=== PATIENT | female | born 1980 | race Caucasian/White ===

== ENCOUNTER 2019-02-11 01:27 | Emergency (ER) | payer OTHER ==
[2019-02-11] MEDS ORDERED: Sodium Chloride 0.9% 1,000 ML IV STA (01:47)
--- NOTE | 2019-02-11 02:56 | ED PDOC ---
HPI: Abdomen Time Seen by Provider: 02/11/19 01:46 Chief Complaint (Nursing): Abdominal Pain Chief Complaint (Provider): Abdominal Pain History Per: Patient History/Exam Limitations: no limitations Onset/Duration Of Symptoms: Hrs (x 8) Current Symptoms Are (Timing): Still Present Location Of Pain/Discomfort: Diffuse Quality Of Discomfort: "Pain" Associated Symptoms: Nausea, Diarrhea Exacerbating Factors: Food Additional Complaint(s): 38 year old female with no significant medical history presents to the ED with abdominal pain and diarrhea since 6 pm yesterday. Patient reports she ate fried plantains and subsequently became nauseous and experienced 6 episodes of non- bloody diarrhea. She describes pain as 8/10. Patient took Pepto Bismol with no relief of symptoms. Denies vomiting and fever. PMD: none provided Past Medical History Reviewed: Historical Data, Nursing Documentation, Vital Signs Vital Signs: Last Vital Signs Temp 99.6 F 02/11/19 01:41 Pulse 115 H 02/11/19 01:41 Resp 18 02/11/19 01:41 BP 109/61 02/11/19 01:41 Pulse Ox 98 02/11/19 01:41 - Medical History PMH: No Chronic Diseases - Surgical History Surgical History: No Surg Hx - Family History Family History: States: No Known Family Hx - Social History Current smoker - smoking cessation education provided: No Alcohol: None Drugs: Denies - Home Medications Home Medications: Ambulatory Orders Medication Instructions Recorded Famotidine [Pepcid] 20 mg PO Q12 #14 tab 02/11/19 Ondansetron ODT [Zofran ODT] 4 mg PO Q6 PRN #8 odt 02/11/19 - Allergies Allergies/Adverse Reactions: Allergies Allergy/AdvReac Type Severity Reaction Status Date / Time No Known Allergies Allergy Verified 02/11/19 01:41 Review of Systems ROS Statement: Except As Marked, All Systems Reviewed And Found Negative Constitutional: Negative for: Fever, Chills Gastrointestinal: Positive for: Nausea, Abdominal Pain, Diarrhea. Negative for: Vomiting Physical Exam - Reviewed Nursing Documentation Reviewed: Yes Vital Signs Reviewed: Yes - Physical Exam Appears: Positive for: Uncomfortable Head Exam: Positive for: ATRAUMATIC, NORMAL INSPECTION, NORMOCEPHALIC Skin: Positive for: Normal Color, Warm, Dry Eye Exam: Positive for: EOMI, Normal appearance, PERRL Neck: Positive for: Normal, Painless ROM, Supple Cardiovascular/Chest: Positive for: Tachycardia (with regular rhythm) Respiratory: Positive for: Normal Breath Sounds. Negative for: Respiratory Distress Gastrointestinal/Abdominal: Positive for: Tenderness (diffuse tenderness). Negative for: Mass, Guarding, Rebound Back: Positive for: Normal Inspection. Negative for: L CVA Tenderness, R CVA Tenderness Extremity: Positive for: Normal ROM (x 4). Negative for: Deformity Neurological/Psych: Positive for: Awake, Alert, Normal Tone, Oriented (x 3), Motor/Sensory Deficits - Laboratory Results Result Diagrams: 02/11/19 02:50 02/11/19 02:50 - ECG O2 Sat by Pulse Oximetry: 98 (RA) Pulse Ox Interpretation: Normal Medical Decision Making Medical Decision Makin:46 Impression: abdominal pain and diarrhea Initial Plan: --CMP --CBC --Lipase --Urine preg --Urine dip --Bentyl 20 mg PO --NS IV 1,000 mls --Toradol 30 mg IV --Zofran ODT 4 mg PO --UA --Gallbladder US 03:42 Gallbladder US Findings: A stone is noted at the neck of the gallbladder measuring 1.3 cm. Normal gallbladder wall thickness measuring 2.9 mm. Normal liver measuring 14.4 cm. Nondilated common bile duct measuring 5.1 mm. Unremarkable visualized pancreas. Unremarkable IVC. Unremarkable right kidney. Impression: Cholelithiasis without acute cholecystitis. 04:18 Patient reports improvement of symptoms and is stable for discharge. Diagnosis is cholelithiasis. Scribe Attestation: Documented by Dot Alexis, acting as a scribe Mike Ledbetter MD Provider Scribe Attestation: All medical record entries made by the Scribe were at my direction and personally dictated by me. I have reviewed the chart and agree that the record accurately reflects my personal performance of the history, physical exam, medical decision making, and the department course for this patient. I have also personally directed, reviewed, and agree with the discharge instructions and disposition Disposition - Clinical Impression Clinical Impression: Cholelithiasis - Patient ED Disposition Is Patient to be Admitted: No - Disposition Referrals: [facility] [place] [Outside] Disposition: Routine/Home Disposition Time: 04:20 Condition: STABLE Prescriptions: Famotidine [Pepcid] 20 mg PO Q12 #14 tab Ondansetron ODT [Zofran ODT] 4 mg PO Q6 PRN #8 odt PRN Reason: Nausea/Vomiting Instructions: Gallstones Forms: [facility] (Spanish) Print Language: BURMESE
[2019-02-11 03:08] LABS: LYMPH # 0.4 K/uL (1.0-4.3); MEAN PLATELET VOLUME 8.6 fl (7.2-11.7); SQUAMOUS EPITHIAL 1 /hpf (0-5); URINE BILIRUBIN NEGATIVE (NEGATIVE); URINE BLOOD NEGATIVE (NEGATIVE); URINE CLARITY SLIGHTY-CLOUDY (Clear); URINE COLOR YELLOW (YELLOW); URINE GLUCOSE (UA) NEG (NEGATIVE); URINE LEUKOCYTE ESTERASE SMALL Leu/uL (Negative); URINE PROTEIN NEGATIVE (NEGATIVE); URINE UROBILINOGEN 0.2-1.0 mg/dL (0.2-1.0); WHITE BLOOD COUNT 10.3 K/uL (4.8-10.8)
[2019-02-11 03:15] LABS: ALB/GLOB RATIO 1.3 (1.0-2.1); ALBUMIN 4.4 g/dL (3.5-5.0); ALT/SGPT 28 U/L (9-52); AST/SGOT 26 U/L (14-36); BLOOD UREA NITROGEN 11 mg/dl (7-17); CALCIUM 9.1 mg/dL (8.4-10.2); GFR NON-AFRICAN AMERICAN > 60; LIPASE 60 U/L (23-300)
[2019-02-11 03:25] LABS: BASO % 0.1 % (0.0-2.0); MEAN CORPUSCULAR HGB CONC 29.5 g/dL (33.0-37.0); MONO # 0.6 K/uL (0.0-0.8); MONO % 5.4 % (0.0-10.0); NEUT # 9.3 K/uL (1.8-7.0); NEUT % 90.5 % (50.0-75.0); PLATELET COUNT 270 K/uL (130-400); RBC 4.73 Mil/uL (3.80-5.20)
[2019-02-11 03:26] LABS: HEMOGLOBIN 8.3 g/dL (12.0-16.0)
[2019-02-11 03:27] LABS: MEAN CORPUSCULAR HEMOGLOBIN 17.5 pg (27.0-31.0); RED CELL DISTRIBUTION WIDTH 18.4 % (11.5-14.5)
[2019-02-11 03:28] LABS: MEAN CELL VOLUME 59.3 fl (81.0-99.0)
[2019-02-11 03:58] LABS: ANISOCYTOSIS MARKED; BANDS 4 % (0-2); HYPOCHROMIC MARKED; LYMPHOCYTE 5 % (20-50); MICROCYTOSIS MODERATE; MONOCYTE 6 % (0-10); NEUTROPHIL 85 % (42-75); PLATELET ESTIMATE NORMAL (NORMAL); POIKILOCYTOSIS MODERATE
[2019-02-11 04:00] LABS: OVALOCYTES SLIGHT; POLYCHROMIC SLIGHT; SCHISTOCYTES SLIGHT; TARGET CELLS SLIGHT
[2019-02-11 04:03] LABS: TOTAL CELLS COUNTED 100
[2019-02-11 04:58] VITALS: RESP 16; O2SAT 100
[2019-02-11 05:03] VITALS: BP 100/63; PULSE 84; TEMP 100
--- NOTE | 2019-02-11 08:19 | US ---
Date of service: 02/11/2019 HISTORY: RUQ pain COMPARISON: None. TECHNIQUE: Sonographic evaluation of the right upper quadrant of the abdomen. FINDINGS: LIVER: Measures 14.4 cm in length. Normal echogenicity of the liver parenchyma. No mass. No intrahepatic bile duct dilatation. GALLBLADDER: Gallbladder is small. No sonographic Dominguez sign elicited. Gallbladder wall is normal in thickness at 2.9 mm. A gallbladder neck stone measuring 1.1 x 0.7 x 1.3 cm in size is present COMMON BILE DUCT: Measures between 3.7 and 5.1 mm. Mm. No stones. No dilatation. PANCREAS: Unremarkable as visualized. No mass. No ductal dilatation. RIGHT KIDNEY: Measures 10.9 x 4.6 x 5.2 cm in length. Normal echogenicity. No calculus, mass, or hydronephrosis. AORTA: No aneurysmal dilatation. IVC: Unremarkable. OTHER FINDINGS: None . IMPRESSION: 1.1 x 0.7 x 1.3 cm gallstone appears impacted in the gallbladder neck. No ancillary signs seen to suggest acute cholecystitis. Close continued follow-up is advised. Concordant results (preliminary interpretation) provided by [employer].
== END 2019-02-11 04:50 | disposition home or self-care (01) ==
LOC: H.ER 01:27
DX: K80.20 Calculus of gallbladder without cholecystitis without obstruction (principal)
CPT/HCPCS: 76705; 80053; 81003; 81025; 83690; 85025; 96360; 99284; J1885; J7030